=== PATIENT | female | born 1990 | race African-American/Black ===

== ENCOUNTER 2019-04-25 20:15 | Emergency (ER) | payer MEDICAID ==
[~2019-04-25] VITALS: Ht 162.6 cm; Wt 112.0 kg
[2019-04-25] MEDS ORDERED: IBUPROFEN 600MG TABLET PO ONE (22:45)
[2019-04-26 00:36] VITALS: BP 142/75
== END 2019-04-26 00:37 | disposition home or self-care (01) ==
LOC: ER 20:15
DX: M54.5 Low back pain (principal); R51 Headache; V43.62XA Car passenger injured in collision with other type car in traffic accident, initial encounter; Y93.89 Activity, other specified; Y92.488 Other paved roadways as the place of occurrence of the external cause
CPT/HCPCS: 72100; 81025; 99284